=== PATIENT | male | born 1935 | race African-American/Black ===

== ENCOUNTER 2023-04-26 23:54 | Emergency (ER) | payer OTHER ==
[~2023-04-26] VITALS: Ht 177.8 cm; Wt 82.0 kg
[2023-04-27 09:10] LABS: BASOPHILS % 0.6 % (0.0-2.0); EOSINOPHILS % 3.5 % (0.0-5.0); HEMATOCRIT. 42.6 % (42.0-52.0); HEMOGLOBIN. 13.4 g/dL (14.0-18.0); MEAN CORPUSCULAR HEMOGLOBIN 28.5 pg (28.0-32.0); MEAN CORPUSCULAR HGB CONC 31.4 g/dL (31.0-37.0); MEAN CORPUSCULAR VOLUME 90.8 fL (80.0-94.0); MEAN PLATELET VOLUME 9.1 fl (7.4-10.4); MONOCYTES % 7.6 % (2.0-8.0); NEUTROPHILS % 67.3 % (40.0-76.0); PLATELET 273 x1000/uL (130-400); RED BLOOD CELL COUNT 4.69 mill/uL (4.7-6.1); RED CELL DISTRIBUTION WIDTH 15.3 % (11.6-14.6); WHITE BLOOD COUNT 7.1 x1000/uL (4.5-11.0)
[2023-04-27 09:25] LABS: ALANINE AMINOTRANSFERASE 66 IU/L (10-49); ALBUMIN 4.6 g/dL (3.2-4.8); ASPARTATE AMINOTRANSFERASE 38 IU/L (<34); BILIRUBIN TOTAL 0.5 mg/dL (0.1-1.0); CALCIUM 9.2 mg/dL (8.7-10.4); CARBON DIOXIDE 26 mEq/L (21-32); CHLORIDE 104 mEq/L (98-107); CREATININE 0.9 mg/dL (0.6-1.3); GLUCOSE 108 mg/dL (70-105); POTASSIUM 3.7 mEq/L (3.5-5.1); PROTEIN TOTAL 7.5 g/dL (6.0-8.3); SODIUM 137 mEq/L (136-145); TROPONIN I HIGH SENSITIVITY 6 ng/L (3.0-53); UREA NITROGEN BLOOD 15 mg/dL (9-23)
[2023-04-27] MEDS ORDERED: ASPIRIN 81MG TABLET PO ONE (10:15)
[2023-04-27] MEDS ORDERED: ALBUTEROL (0.083%) 2.5MG/3ML NEB HHN STA (11:17)
[2023-04-27] MEDS ORDERED: PREDNISONE 20MG TABLET PO STA (11:17)
[2023-04-27 11:30] VITALS: PULSE 88; RESP 20; O2SAT 99
[2023-04-27 12:43] VITALS: BP 167/82; PULSE 83; RESP 18; TEMP 98.3
== END 2023-04-27 13:14 | disposition short-term general hospital (02) ==
LOC: ER 23:54 → EDBEDREQ 04-27 06:33 → CANBEDREQ 04-27 12:02 → ER 04-27 13:14
DX: R06.00 Dyspnea, unspecified (principal); J44.1 Chronic obstructive pulmonary disease with (acute) exacerbation; E11.9 Type 2 diabetes mellitus without complications; E78.00 Pure hypercholesterolemia, unspecified; I10 Essential (primary) hypertension; Z20.822 Contact with and (suspected) exposure to COVID-19
CPT/HCPCS: 99285; 87426; 80053; 82962; 83880; 85025; 85379; 84484; 36415; 71045; 94640; 93005; J7512; 99291

== ENCOUNTER 2024-11-21 09:44 | Emergency (ER) | payer OTHER ==
[~2024-11-21] VITALS: Ht 177.8 cm; Wt 75.0 kg
[2024-11-21 09:45] VITALS: O2SAT 100
[2024-11-21 10:35] LABS: BASOPHILS % 0.8 % (0.0-2.0); EOSINOPHILS % 1.7 % (0.0-5.0); HEMATOCRIT. 34.7 % (42.0-52.0); HEMOGLOBIN. 11.1 g/dL (14.0-18.0); LYMPHOCYTES % 16.5 % (20.0-50.0); MEAN PLATELET VOLUME 8.1 fl (7.4-10.4); MONOCYTES % 8.5 % (2.0-8.0); NEUTROPHILS % 72.5 % (40.0-76.0); PLATELET 317 x1000/uL (130-400); RED BLOOD CELL COUNT 3.78 mill/uL (4.7-6.1); RED CELL DISTRIBUTION WIDTH 19.1 % (11.6-14.6)
[2024-11-21 10:48] LABS: CREATININE 1.0 mg/dL (0.6-1.3); UREA NITROGEN BLOOD 11 mg/dL (9-23)
[2024-11-21 10:50] LABS: ASPARTATE AMINOTRANSFERASE 29 IU/L (<34); BILIRUBIN DIRECT 0.4 mg/dL (<=3.0); BILIRUBIN TOTAL 0.9 mg/dL (0.1-1.0)
[2024-11-21 10:59] LABS: PROTEIN TOTAL 5.5 g/dL (6.0-8.3)
[2024-11-21] MEDS: ONDANSETRON HCL 4MG/2ML INJ IV ONE (11:31)
[2024-11-21] MEDS: SODIUM CHLORIDE 0.9% 1,000 ML IV ONE (11:31)
[2024-11-21] MEDS: MORPHINE SULFATE 2 MG/ML INJ (NOT FOR IM USE) IV ONE (11:31)
[2024-11-21] MEDS: POTASSIUM CHLORIDE 20MEQ/PACKET PO ONE (11:36)
[2024-11-21 15:25] VITALS: BP 132/78; PULSE 88; RESP 20; TEMP 36.8; O2SAT 100
== END 2024-11-21 15:41 | disposition short-term general hospital (02) ==
LOC: ER 09:44 → CANBEDREQ 14:48 → ER 15:41
DX: R10.84 Generalized abdominal pain (principal); I10 Essential (primary) hypertension; E11.9 Type 2 diabetes mellitus without complications; Z88.0 Allergy status to penicillin
CPT/HCPCS: 99285; 74176; 96374; 96375; 80076; 80048; 83690; 85025; 36415; J2405; J2270; J7030; A4606

== ENCOUNTER 2025-02-23 15:25 | Inpatient (IN) | payer OTHER ==
[~2025-02-23] VITALS: Ht 167.6 cm; Wt 59.5 kg
[2025-02-23 15:34] VITALS: O2SAT 99
[2025-02-23] MEDS: SODIUM CHLORIDE 0.9% 1,000 ML IV ONE (16:46)
[2025-02-23] MEDS: KETOROLAC 15MG/ML VIAL IV ONE (16:46)
[2025-02-23] MEDS: ONDANSETRON HCL 4MG/2ML INJ IV ONE (16:46)
[2025-02-23 18:06] LABS: HEMATOCRIT. 48.4 % (42.0-52.0); HEMOGLOBIN. 15.5 g/dL (14.0-18.0); MEAN PLATELET VOLUME 9.6 fl (7.4-10.4); PLATELET 299 x1000/uL (130-400); RED BLOOD CELL COUNT 5.32 mill/uL (4.7-6.1); RED CELL DISTRIBUTION WIDTH 17.9 % (11.6-14.6)
[2025-02-23 18:19] LABS: TROPONIN I HIGH SENSITIVITY 25 ng/L (3.0-53)
[2025-02-23 18:31] LABS: LYMPHOCYTES % MANUAL 31.0 % (20.0-50.0); MONOCYTES % MANUAL 15.0 % (2.0-8.0); NEUTROPHILS % MANUAL 54.0 % (45.0-75.0); PLATELET ESTIMATE NORMAL
[2025-02-23 19:12] LABS: INR 1.2
[2025-02-23 19:30] LABS: CREATININE 1.0 mg/dL (0.6-1.3); UREA NITROGEN BLOOD 15 mg/dL (9-23)
[2025-02-23 19:32] LABS: BILIRUBIN DIRECT 0.5 mg/dL (<=3.0); BILIRUBIN TOTAL 1.2 mg/dL (0.1-1.0)
[2025-02-23 19:33] LABS: PROTEIN TOTAL 6.4 g/dL (6.0-8.3)
[2025-02-23] MEDS: LEVOFLOXACIN 750MG PREMIX 150 ML IV ONE (19:38)
[2025-02-23 19:49] LABS: ASPARTATE AMINOTRANSFERASE 1148 IU/L (<34)
[2025-02-23 20:07] LABS: TROPONIN I HIGH SENSITIVITY 28 ng/L (3.0-53)
[2025-02-24] MEDS ORDERED: IPRATROPIUM/ALBUTEROL 0.5-3(2.5)MG/3ML NEB HHN PRN (04:30)
[2025-02-24] MEDS ORDERED: ONDANSETRON HCL 4MG/2ML INJ IV PRN (04:30)
[2025-02-24] MEDS ORDERED: ACETAMINOPHEN 325MG TABLET PO PRN (04:30)
[2025-02-24] MEDS: LACTATED RINGERS 1,000 ML IV ONE (05:23)
[2025-02-24] MEDS: CLONIDINE 0.1MG TABLET PO PRN (05:41)
[2025-02-24] MEDS: AMLODIPINE 10MG TABLET PO SCH (05:41)
[2025-02-24 08:00] VITALS: BP 131/78; PULSE 101; RESP 18; TEMP 36.4
[2025-02-24] MEDS: ENOXAPARIN 30MG/0.3ML SYR SUBCUT SCH (08:52)
[2025-02-24] MEDS ORDERED: AMLODIPINE 5MG TABLET PO SCH ×2 (09:00)
[2025-02-24] MEDS ORDERED: AMLODIPINE 10MG TABLET PO SCH (09:00)
[2025-02-24] MEDS: PANTOPRAZOLE SODIUM 40 MG/VIAL IV SCH (09:39)
[2025-02-24 11:08] VITALS: BP 131/78; PULSE 101; RESP 16; TEMP 36.4736
[2025-02-24 12:00] VITALS: BP 115/62; PULSE 70; RESP 16; TEMP 36.3
[2025-02-24 15:15] LABS: *AMPHETAMINES SCREEN URINE NEGATIVE (NEGATIVE); *BENZODIAZEPINES SCREEN URINE NEGATIVE (NEGATIVE)
[2025-02-24 15:16] LABS: *BARBITURATES SCREEN URINE NEGATIVE (NEGATIVE); *COCAINE SCREEN URINE NEGATIVE (NEGATIVE); CANNABINOID URINE SCREEN NEGATIVE (NEGATIVE); ECSTASY MDMA SCREEN URINE NEGATIVE (NEGATIVE); METHADONE URINE SCREEN NEGATIVE (NEGATIVE); OPIATES URINE SCREEN PRESUMPTIVE POSITIVE (NEGATIVE); PHENCYCLIDINE URINE SCREEN NEGATIVE (NEGATIVE)
[2025-02-24 16:00] VITALS: BP 121/56; PULSE 101; RESP 18; TEMP 36.2; O2SAT 100
[2025-02-24 18:07] LABS: CLARITY URINE CLEAR (CLEAR); COLOR URINE YELLOW (YELLOW); PH URINE 6.0 (4.5-8.0); SPECIFIC GRAVITY URINE 1.037 (1.005-1.030)
[2025-02-24 18:08] LABS: GLUCOSE URINE NEGATIVE (NEGATIVE); KETONES URINE TRACE (NEGATIVE); LEUKOCYTE ESTERASE URINE 1+ (NEGATIVE); NITRITE URINE POSITIVE (NEGATIVE); OCCULT BLOOD URINE TRACE (NEGATIVE); PROTEIN URINE TRACE (NEGATIVE); UROBILINOGEN URINE 0.2 E.U./dL (0.2-1.0)
[2025-02-24 18:41] LABS: BACTERIA URINE 1+; RBC URINE 0-2 /hpf (0-2); SQUAMOUS EPITHELIAL CELL URINE 1+ /lpf (RARE/1+)
[2025-02-24 20:00] VITALS: BP 141/79; PULSE 76; RESP 18; TEMP 36.4; O2SAT 100
[2025-02-24] MEDS: KETOROLAC 15MG/ML VIAL IV NR (21:42)
[2025-02-25] VITALS: BP 129/72; PULSE 83; RESP 18; TEMP 36.3; O2SAT 100
[2025-02-25 04:00] VITALS: BP 129/66; PULSE 82; RESP 18; TEMP 37.1; O2SAT 99
[2025-02-25 08:00] VITALS: BP 108/78; PULSE 77; RESP 20; TEMP 36.6; O2SAT 97
[2025-02-25 08:38] LABS: UREA NITROGEN BLOOD 14 mg/dL (9-23)
[2025-02-25 08:40] LABS: T4 FREE 1.29 ng/dL (0.89-1.76)
[2025-02-25 09:26] LABS: CREATININE 0.4 mg/dL (0.6-1.3)
[2025-02-25 12:00] VITALS: BP 110/79; PULSE 80; RESP 18; TEMP 36.3; O2SAT 98
[2025-02-25] MEDS: LEVOFLOXACIN 750MG PREMIX 150 ML IV SCH (15:41)
[2025-02-25 16:00] VITALS: BP 108/86; PULSE 90; RESP 20; TEMP 37.2; O2SAT 95
[2025-02-25 20:00] VITALS: BP 153/69; PULSE 90; RESP 20; TEMP 36.5; O2SAT 98
[2025-02-25] MEDS: MENTHOL/LANOLIN/CALAMINE/ZN OX OINT 71GM TOP SCH (21:58)
[2025-02-26] VITALS: BP 132/64; PULSE 86; RESP 20; TEMP 36.8; O2SAT 100
[2025-02-26] MEDS: DICLOFENAC SODIUM 75MG DR TABLET PO NR (00:39)
[2025-02-26 04:00] VITALS: BP 130/84; PULSE 80; RESP 20; TEMP 36.8; O2SAT 99
[2025-02-26 07:26] LABS: PLATELET 247 x1000/uL (130-400); RED BLOOD CELL COUNT 4.81 mill/uL (4.7-6.1); RED CELL DISTRIBUTION WIDTH 15.0 % (11.6-14.6)
[2025-02-26 07:34] LABS: CREATININE 1.0 mg/dL (0.6-1.3); UREA NITROGEN BLOOD 13 mg/dL (9-23)
[2025-02-26 08:00] VITALS: BP 115/72; PULSE 89; RESP 18; TEMP 36.5; O2SAT 99
[2025-02-26] MEDS: DOCUSATE SODIUM 100MG CAPSULE PO PRN (09:27)
[2025-02-26] MEDS: ACETAMINOPHEN 325MG TABLET PO PRN (09:28)
[2025-02-26 12:00] VITALS: BP 127/69; PULSE 71; RESP 18; TEMP 36.6; O2SAT 100
[2025-02-26 16:00] VITALS: BP 132/69; PULSE 75; PULSE 80; RESP 18; RESP 20; TEMP 36.1; O2SAT 100
[2025-02-26] MEDS ORDERED: AMLO10TA80 PO (16:02)
[2025-02-26 17:24] VITALS: BP 127/69; PULSE 71; RESP 18; TEMP 97.9
== END 2025-02-26 18:55 | disposition home or self-care (01) | DRG 394 ==
LOC: ER 15:25 → EDBEDREQ 22:09 → EDBEDREQTM 22:09 → ENRESERV 02-24 04:08 → 7WST 02-24 04:47
PROVIDERS: ADMIT Internal Medicine; ATTEND Internal Medicine
DX: K40.90 Unilateral inguinal hernia, without obstruction or gangrene, not specified as recurrent (principal); E87.20 Acidosis, unspecified; E11.51 Type 2 diabetes mellitus with diabetic peripheral angiopathy without gangrene; I11.9 Hypertensive heart disease without heart failure; I16.0 Hypertensive urgency; K59.00 Constipation, unspecified; I48.91 Unspecified atrial fibrillation; R32 Unspecified urinary incontinence; L30.9 Dermatitis, unspecified; E78.5 Hyperlipidemia, unspecified; Z85.46 Personal history of malignant neoplasm of prostate; Z88.0 Allergy status to penicillin; Z90.49 Acquired absence of other specified parts of digestive tract; Z79.84 Long term (current) use of oral hypoglycemic drugs
CPT/HCPCS: 36415; 71045; 74177; 80048; 80076; 80305; 81003; 82550; 83036; 83605; 84145; 84439; 84443; 84484; 85025; 85027; 86850; 86900; 93005; 93923; 96365; 96375; 99285; A4606; J1650; J1885; J1956; J2405; J2470; J7030